=== PATIENT | female | born 1965 ===

== ENCOUNTER 2018-04-12 22:22 | Observation (INO) ==
[2018-04-12] MEDS ORDERED: fentaNYL Citrate Inj 100 MCG/2 ML Ampul ONE (22:32)
[2018-04-12 22:54] LABS: Baso # (Auto) 0.1 th/mm3 (0.0-0.2); Baso % (Auto) 0.7 % (0.0-2.0); Eos # (Auto) 0.2 th/mm3 (0.0-0.4); Eos % (Auto) 1.5 % (0.0-4.0); Hematocrit 40.7 % (35.0-46.0); Hemoglobin 13.9 gm/dL (11.6-15.3); Lymph # (Auto) 3.5 th/mm3 (1.0-4.8); Lymph % (Auto) 31.6 % (9.0-44.0); Mean Corpuscular HGB Conc 34.2 % (32.0-36.0); Mean Corpuscular Hemoglobin 31.8 pg (27.0-34.0); Mean Corpuscular Volume 93.1 fL (80.0-100.0); Mono # (Auto) 0.7 th/mm3 (0.0-0.9); Mono % (Auto) 6.5 % (0.0-8.0); Neut # (Auto) 6.6 th/mm3 (1.8-7.7); Neut % (Auto) 59.7 % (16.0-70.0); Platelet Count 271 th/mm3 (150-450); Red Blood Count 4.37 mil/mm3 (4.00-5.30); Red Cell Distribution Width 12.8 % (11.6-17.2); White Blood Count 11.1 th/mm3 (4.0-11.0)
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
[2018-04-12 23:04] LABS: Activated Partial Thrombo Time 24.9 sec (24.3-30.1)
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
[2018-04-12] MEDS ORDERED: fentaNYL Citrate Inj 100 MCG/2 ML Ampul IV.PUSH ONE (23:08)
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
[2018-04-13] MEDS ORDERED: fentaNYL Citrate Inj 100 MCG/2 ML Ampul IV.PUSH ONE (00:41)
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
[2018-04-13] MEDS ORDERED: Temazepam 15 MG Capsule PO PRN (05:11)
[2018-04-13] MEDS ORDERED: Bisacodyl 10 MG Supp RECTAL PRN (05:11)
[2018-04-13] MEDS ORDERED: Acetaminophen 325 MG Tablet PO PRN (05:11)
[2018-04-13] MEDS ORDERED: Sod Chloride 0.9% Inj 1,000 ML IV.CONT SCH (05:15)
[2018-04-13] MEDS ORDERED: Morphine Inj 4 MG/ML Vial IV.PUSH PRN (05:30)
[2018-04-13] MEDS ORDERED: Senna/Docusate Sodium 8.6/50 MG Tablet PO SCH (09:00)
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
[2018-04-13] MEDS ORDERED: Baclofen 10 MG Tablet PO SCH (14:00)
== END 2018-04-13 17:23 | disposition home or self-care (01) ==
LOC: NEPI 22:22 → NEPGCP 22:22 → EDBD 04-13 04:43 → NEDA 04-13 04:43 → INTOOBSV 04-13 04:43 → NEPGCP 04-13 05:52
PROVIDERS: ADMIT Internal Medicine; ATTEND Internal Medicine